=== PATIENT | female | born 1970 | race Two or more races ===

== ENCOUNTER 2024-07-17 16:38 | Emergency (ER) | payer BC, MEDICAID ==
[~2024-07-17] VITALS: Ht 154.9 cm; Wt 101.1 kg
[2024-07-17] MEDS ORDERED: CYCL-614 PO (18:24)
[2024-07-17] MEDS ORDERED: IBUP-1456 PO (18:24)
--- NOTE | 2024-07-17 18:24 | ED.PDOC ---
Back pain HPI HPI Comments 54-year-old female presents to ER with complaints of back pain x3 days. Patient reports she started experiencing right lower lumbar back pain three days ago after she was finished [place] hour [place] drive. She rates her current pain a burning 7/10 to right lower lumbar region with radiation towards right buttock. Denies use of medications for current symptoms. Patient presents to ER ambulatory on arrival, with steady gait, in no distress and states she does have intermittent numbness/tingling down right leg. Denies fever, body aches, chills, trauma/falls, heavy lifting, nausea/vomiting, shortness of breath, chest pain, abdominal/pelvic pain, changes in urination/BM or any further symptoms/ complaints Chief Complaint: Back Pain Time Seen by MD: 18:07 Primary Care Provider: JUAN Reviewed Notes: Nurses Notes, Medications, Allergies Allergies: Coded Allergies: NO KNOWN ALLERGIES (Unverified , 07/17/24) Home Meds Active Scripts Ibuprofen (Ibuprofen) 800 Mg Tab, 1 TAB PO TID PRN, #30 TAB 0 Refills Prov:MANASA TOVAR 07/17/24 Cyclobenzaprine HCl (Cyclobenzaprine Hydrochlo) 5 Mg Tab, 5 MG PO QHSP, #14 TAB 0 Refills Prov:MANASA TOVAR 07/17/24 Information Source: Patient Mode of Arrival: Ambulatory Past Medical History Past Medical History (Other): migranes Surgical History: Hysterectomy Surgical History (Other): bilateral breast augmentation [employer]OR [employer] 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 History Family History Family History: Unknown Social History Lives In: Home Constitutional: denies: chills, diaphoresis, fatigue, fever, malaise, sweats, weakness, others EENTM: denies: blurred vision, double vision, ear bleeding, ear discharge, ear drainage, ear pain, ear ringing, eye pain, eye redness, hearing loss, mouth pain, mouth swelling, nasal discharge, nose bleeding, nose congestion, nose pain, photophobia, tearing, throat pain, throat swelling, voice changes, others Respiratory: denies: cough, hemoptysis, orthopnea, SOB at rest, shortness of breath, SOB with excertion, stridor, wheezing, others Cardiovascular: denies: chest pain, dizzy spells, diaphoresis, Dyspnea on exertion, edema, irregular heart beat, left arm pain, lightheadedness, p alpitations, PND, syncope, others Gastrointestinal: denies: abdomen distended, abdominal pain, blood streaked bowels, constipated, diarrhea, dysphagia, difficulty swallowing, hematemesis, melena, nausea, poor appetite, poor fluid intake, rectal bleeding, rectal pain, vomiting, others Genitourinary: denies: abnormal vagina bleeding, burning, dyspareunia, dysuria, flank pain, frequency, hematuria, incontinence, pain, , vagina discharge, urgency, others Neurological: reports: others (As stated in HPI) Musculoskeletal: reports: others (As stated in HPI) Integumetry: denies: bruises, change in color, change in hair/nails, dryness, laceration, lesions, lumps, rash, wounds, others Allergic/Immunocompromised: denies: Difficulty Healing, Frequent Infections, Hives, Itching, others Hematologic/Lymphatic: denies: anemia, blood clots, easy bleeding, easy bruising, swollen glands, others Endocrine: denies: excessive hunger, excessive sweating, excessive thirst, excessive urination, flushing, intolerance to cold, intolerance to heat, unexplained weight gain, unexplained weight loss, others Psychiatric: denies: anxiety, bipolar disorder, depression, hopeless, panic disorder, schizophrenia, sleepless, suicidal, others Physical Exam General Appearance: No Apparent Distress, Obese HEENT: PERRL/EOMI Neck: Full Range of Motion, Non-Tender, Normal Respiratory: Chest Non-Tender, Lungs Clear, No Accessory Muscle Use, No Respiratory Distress, Normal Breath Sounds Cardiovascular: No Murmur, No Gallop, Regular Rate/Rhythm Breast Exam: Deferred Gastrointestinal: Non Tender, No Pulsatile Mass, Soft Genitalia: Deferred Pelvic: Deferred Rectal: Deferred Extremities: No calf tenderness, Normal capillary refill, Normal range of motion Musculoskeletal : Extremity Location: Back (Slight TTP to right lower lumbar paraspinals and centralized to right buttock noted. No skin changes appreciated. Steady gait noted) Neurologic: Alert, No Motor Deficits, Normal Affect, Normal Mood, No Sensory Deficits Cerebellar Function: Normal Reflexes: Normal Skin: Dry, Normal Color, Warm Peripheral Pulses: 2+ femoral (R), 2+ femoral (L), 2+ dorsalis pedis (R), 2+ dorsalis pedis (L), 2+ Radial (R), 2+ Radial (L), 2+ Brachial (R), 2+ Brachial (L) Lymphatic: No Adenopathy Was a procedure done? Was a procedure done?: No Sedation Sedation?: No Back Pain Differential Dx Differential Diagnosis: AAA, Fracture, Urolithiasis, Other (OR) X-Ray, Labs, Meds, VS Vital Signs Date Time Temp Pulse Resp B/P (MAP) Pulse Ox O2 Delivery O2 Flow Rate FiO2 07/17/24 17:05 97.0 70 18 149/93 (111) 95 Toradol 60 mg IM ordered Patient neurovascularly intact and reported improvement in symptoms prior to discharge Advised on rest/no strenuous activity Advised to follow up with PCP in 1-2 days Patient verbalized understanding and agreeable with current plan of care Advised to return to ER immediately if symptoms worsen Time of 1ST Reevaluation: 18:02 Reevaluation 1ST: N/A Time of 2ND Reevaluation: 18:28 Reevaluation 2ND: Improved Patient Education/Counseling: Diagnosis, Treatment, Prognosis, Need For Follow Up Family Education/Counseling: No Family Present Departure 1 Departure Time of Disposition: 18:30 Impression: Primary Impression: Sciatica, right side Disposition: 01 HOME / SELF CARE / HOMELESS Condition: Stable e-Prescriptions Ibuprofen (Ibuprofen) 800 Mg Tab 1 TAB PO TID PRN, #30 TAB 0 Refills Prov: MANASA TOVAR 07/17/24 Cyclobenzaprine HCl (Cyclobenzaprine Hydrochlo) 5 Mg Tab 5 MG PO QHSP, #14 TAB 0 Refills Prov: MANASA TOVAR 07/17/24 Discharged With: Self Critical Care Note Critical Care Time?: No Stability Stability form required: No Heart Score Heart Score: Heart Score Response (Comments) Value History N/A 0 EKG N/A 0 Age N/A 0 Risk Factors N/A 0 Troponin N/A 0 Total 0 MANASA TOVAR Jul 17, 2024 18:24
[2024-07-17 18:31] VITALS: BP 149/93; PULSE 70; RESP 18; TEMP 97; O2SAT 95
[2024-07-17] MEDS: KETOROLAC TROMETH 60MG/2ML VIAL IM ONE (18:34)
== END 2024-07-17 18:24 | disposition home or self-care (01) ==
LOC: ER 16:38
DX: M54.41 Lumbago with sciatica, right side (principal); Z90.710 Acquired absence of both cervix and uterus
CPT/HCPCS: 96372; 99283; J1885